=== PATIENT | female | born 1995 | race African-American/Black ===

== ENCOUNTER 2021-03-03 09:11 | Emergency (ER) | payer OTHER ==
[2021-03-03 09:15] VITALS: BP 135/97; PULSE 108; TEMP 97; BMI 42.3
[2021-03-03] MEDS ORDERED: KETOROLAC TROMETHAMINE 30 MG/1 ML VIAL ONE (09:42)
[2021-03-03] MEDS ORDERED: KETOROLAC TROMETHAMINE 30 MG/1 ML VIAL IM ONE (09:42)
== END 2021-03-03 09:55 | disposition home or self-care (01) ==
LOC: JERFT 09:11
PROC: 3E023GC Introduction of Other Therapeutic Substance into Muscle, Percutaneous Approach (ICD-10-PCS; principal; 2021-03-03)
DX: M71.38 Other bursal cyst, other site (principal)
CPT/HCPCS: 99284-25